=== PATIENT | male | born 1990 | race Two or more races ===

== ENCOUNTER 2020-04-25 08:42 | Outpatient (REF) | payer OTHER, SELFPAY | END 2020-04-25 08:43 | disposition home or self-care (01) | LOC: HO.LAB 08:42 | PROVIDERS: Visit Provider Internal Medicine | DX: Z20.828 Contact with and (suspected) exposure to other viral communicable diseases (principal) | CPT/HCPCS: C9803; U0003 ==

== ENCOUNTER 2020-06-19 11:38 | Outpatient (REF) | payer OTHER, SELFPAY | END 2020-06-19 11:39 | disposition home or self-care (01) | LOC: HO.LAB 11:38 | PROVIDERS: Visit Provider Internal Medicine | DX: Z20.822 Contact with and (suspected) exposure to COVID-19 (principal) | CPT/HCPCS: 36415; C9803; U0003 ==

== ENCOUNTER 2020-07-18 09:32 | Outpatient (REF) | payer OTHER, SELFPAY | END 2020-07-18 09:33 | disposition home or self-care (01) | LOC: HO.LAB 09:32 | PROVIDERS: Visit Provider Internal Medicine | DX: Z20.822 Contact with and (suspected) exposure to COVID-19 (principal) | CPT/HCPCS: 36415; C9803; U0003; U0005 ==

== ENCOUNTER 2020-07-27 13:31 | Outpatient (REF) | payer OTHER, SELFPAY | END 2020-07-27 13:32 | disposition home or self-care (01) | LOC: HO.LAB 13:31 | PROVIDERS: Visit Provider Internal Medicine | DX: Z20.822 Contact with and (suspected) exposure to COVID-19 (principal) | CPT/HCPCS: 36415; C9803; U0003; U0005 ==

== ENCOUNTER 2020-08-06 11:11 | Outpatient (REF) | payer OTHER, SELFPAY | END 2020-08-06 11:12 | disposition home or self-care (01) | LOC: HO.LAB 11:11 | PROVIDERS: Visit Provider Internal Medicine | DX: Z20.822 Contact with and (suspected) exposure to COVID-19 (principal) | CPT/HCPCS: 36415; C9803; U0003; U0005 ==

== ENCOUNTER 2020-08-21 09:07 | Outpatient (REF) | payer OTHER, SELFPAY | END 2020-08-21 09:08 | disposition home or self-care (01) | LOC: HO.LAB 09:07 | PROVIDERS: Visit Provider Internal Medicine | DX: Z20.822 Contact with and (suspected) exposure to COVID-19 (principal) | CPT/HCPCS: 36415; C9803; U0003; U0005 ==

== ENCOUNTER 2020-11-09 09:45 | Outpatient (REF) | payer OTHER, SELFPAY | END 2020-11-09 09:46 | disposition home or self-care (01) | LOC: HO.LAB 09:45 | PROVIDERS: Visit Provider Internal Medicine | DX: Z20.822 Contact with and (suspected) exposure to COVID-19 (principal) | CPT/HCPCS: C9803; U0003; U0005 ==

== ENCOUNTER 2021-05-27 12:13 | Outpatient (REF) | payer OTHER, SELFPAY | END 2021-05-27 12:14 | disposition home or self-care (01) | LOC: HO.LAB 12:13 | PROVIDERS: Visit Provider Internal Medicine | DX: Z20.822 Contact with and (suspected) exposure to COVID-19 (principal) | CPT/HCPCS: C9803; U0003; U0005 ==